=== PATIENT | female | born 1960 | race Native Hawaiian/Other Pacific Islander ===

== ENCOUNTER 2022-02-15 12:28 | Outpatient (CLI) | payer OTHER | END 2022-02-15 19:27 | disposition home or self-care (01) | LOC: RAD 12:28 | PROVIDERS: ATTEND Physical Medicine & Rehabilitation Pain Medicine | DX: M47.812 Spondylosis without myelopathy or radiculopathy, cervical region (principal); M47.816 Spondylosis without myelopathy or radiculopathy, lumbar region ==

== ENCOUNTER 2022-10-01 13:05 | Outpatient (CLI) | payer OTHER | END 2022-10-01 18:59 | disposition home or self-care (01) | LOC: RESP 13:05 | PROVIDERS: ATTEND Nurse Practitioner Family | DX: M19.041 Primary osteoarthritis, right hand (principal); M35.05 Sjogren syndrome with inflammatory arthritis; M54.2 Cervicalgia; Z79.891 Long term (current) use of opiate analgesic; Z79.899 Other long term (current) drug therapy ==